=== PATIENT | male | born 1965 | race Caucasian/White ===

== ENCOUNTER 2018-02-24 16:50 | Emergency (ER) | payer SELFPAY ==
[~2018-02-24] VITALS: Ht 188 cm; Wt 100.0 kg
[2018-02-24 19:22] LABS: BASOPHILS % (AUTO) 0.8 % (0.0-2.0); EOSINOPHILS % (AUTO) 0.8 % (1.0-6.0); HEMATOCRIT 42.1 % (41-53); HEMOGLOBIN 14.8 g/dL (13.5-17.5); LYMPHOCYTES # (AUTO) 1.7 K/uL (1.0-4.8); LYMPHOCYTES % (AUTO) 22.9 % (22.0-44.0); MEAN CORPUSCULAR HEMOGLOBIN 33.4 pg (26.0-34.0); MEAN CORPUSCULAR HGB CONC 35.2 G/dL (31.0-37.0); MEAN CORPUSCULAR VOLUME 95 fL (80-100); MONOCYTES # (AUTO) 0.7 K/uL (0.1-1.0); MONOCYTES % (AUTO) 9.9 % (2.0-9.0); NEUTROPHILS # (AUTO) 4.8 K/uL (1.8-7.7); NEUTROPHILS % (AUTO) 65.6 % (40.0-70.0); PLATELET COUNT (AUTO) 172 K/uL (150-450); RED BLOOD CELL COUNT(AUTO) 4.44 MIL/uL (4.50-5.90)
[2018-02-24 19:25] VITALS: BP 103/71
[2018-02-24 19:33] LABS: ANION GAP 16 mmol/L (8-16); CALCIUM, TOTAL 8.4 mg/dL (8.8-10.5); CARBON DIOXIDE 23 mmol/L (22-29); CHLORIDE 103 mmol/L (98-107); CREATININE 0.82 mg/dL (0.60-1.30); GLOMERULAR FILTR. RATE CALC > 60 mL/min (>60); GLUCOSE,RANDOM 143 mg/dL (70-110); POTASSIUM 3.7 mmol/L (3.5-5.1); SODIUM SERUM 142 mmol/L (136-145); UREA NITROGEN, BLOOD 12 mg/dL (7-18)
[2018-02-24 19:58] LABS: ALANINE AMINOTRANSFERASE 68 U/L (12-78); ALBUMIN 4.1 g/dL (3.4-5.0); ALKALINE PHOSPHATASE 74 U/L (46-116); ASPARTATE AMINOTRANSFERASE 97 U/L (15-37); BILIRUBIN,TOTAL 1.2 mg/dL (0.1-1.0); CREATINE KINASE, TOTAL 214 U/L (39-308); TOTAL PROTEIN, SERUM 7.5 g/dL (6.4-8.2)
[2018-02-24 19:59] LABS: B-TYPE NATRIURETIC PEPTIDE 9 pg/mL (0-100)
[2018-02-24] MEDS ORDERED: LORazepam 2 MG TABLET PO ONE (20:00)
== END 2018-02-24 20:30 | disposition left against medical advice (07) ==
LOC: EMS 16:50
DX: S20.219A Contusion of unspecified front wall of thorax, initial encounter (principal); F41.9 Anxiety disorder, unspecified; F17.210 Nicotine dependence, cigarettes, uncomplicated; X58.XXXA Exposure to other specified factors, initial encounter; Y93.89 Activity, other specified; Y92.89 Other specified places as the place of occurrence of the external cause; Y99.8 Other external cause status
CPT/HCPCS: 71045; 80053; 82550; 82553; 83880; 84484; 85025; 85610; 85730; 93005; 99285; G0480

== ENCOUNTER 2018-07-31 12:08 | Inpatient (IN) | payer MEDICAID ==
[~2018-07-31] VITALS: Ht 188 cm; Wt 106.4 kg
[2018-07-31] MEDS ORDERED: THIA100T67 PO (12:20)
[2018-07-31] MEDS ORDERED: TRAZ-220 PO (12:20)
[2018-07-31] MEDS ORDERED: FOLI1 PO (12:20)
[2018-07-31] MEDS ORDERED: MECL-111 PO (12:20)
[2018-07-31] MEDS ORDERED: GABA-531 PO ×2 (12:20)
[2018-07-31] MEDS ORDERED: THIA1002I IM (12:20)
[2018-07-31] MEDS ORDERED: SERT50TA12 PO (12:20)
[2018-07-31] MEDS ORDERED: SODIUM CHLORIDE 0.9% 1,000 ML IV ONE (12:45)
[2018-07-31 13:02] LABS: BASOPHILS % (AUTO) 0.8 % (0.0-2.0); EOSINOPHILS % (AUTO) 0.8 % (1.0-6.0); HEMATOCRIT 44.2 % (41-53); HEMOGLOBIN 15.7 g/dL (13.5-17.5); LYMPHOCYTES % (AUTO) 22.7 % (22.0-44.0); MEAN CORPUSCULAR HEMOGLOBIN 33.1 pg (26.0-34.0); MEAN CORPUSCULAR HGB CONC 35.5 G/dL (31.0-37.0); MEAN CORPUSCULAR VOLUME 93 fL (80-100); MONOCYTES # (AUTO) 0.9 K/uL (0.1-1.0); MONOCYTES % (AUTO) 10.3 % (2.0-9.0); NEUTROPHILS # (AUTO) 5.7 K/uL (1.8-7.7); NEUTROPHILS % (AUTO) 65.4 % (40.0-70.0); PLATELET COUNT (AUTO) 196 K/uL (150-450); RED BLOOD CELL COUNT(AUTO) 4.75 MIL/uL (4.50-5.90); RED CELL DISTRIBUTION WIDTH 13.4 % (11.5-14.5)
[2018-07-31 13:22] LABS: ANION GAP 10 mmol/L (8-16); CARBON DIOXIDE 25 mmol/L (22-29); CHLORIDE 100 mmol/L (98-107); CREATININE 0.86 mg/dL (0.60-1.30); GLOMERULAR FILTR. RATE CALC > 60 mL/min (>60); GLUCOSE,RANDOM 108 mg/dL (70-110); POTASSIUM 3.6 mmol/L (3.5-5.1); SODIUM SERUM 135 mmol/L (136-145); UREA NITROGEN, BLOOD 10 mg/dL (7-18)
[2018-07-31 13:26] LABS: ALANINE AMINOTRANSFERASE 22 U/L (12-78); ALBUMIN 3.6 g/dL (3.4-5.0); ALKALINE PHOSPHATASE 64 U/L (46-116); ASPARTATE AMINOTRANSFERASE 20 U/L (15-37); BILIRUBIN,TOTAL 0.8 mg/dL (0.1-1.0); TOTAL PROTEIN, SERUM 6.9 g/dL (6.4-8.2)
[2018-07-31] MEDS ORDERED: ChlordiazePOXIDE HCL 25 MG CAPSULE PO ONE (13:45)
[2018-07-31] MEDS ORDERED: LORazepam 2 MG TABLET PO PRN (15:45)
[2018-07-31] MEDS: HALOPERIDOL 5 MG TABLET PO PRN (17:45)
[2018-07-31 18:54] VITALS: BP 145/69
[2018-07-31] MEDS ORDERED: ACETAMINOPHEN 325 MG TABLET PO PRN (19:45)
[2018-07-31] MEDS ORDERED: ONDANSETRON HCL 4 MG TABLET PO PRN (19:45)
[2018-07-31] MEDS ORDERED: DOCUSATE SODIUM 100 MG CAPSULE PO PRN (19:45)
[2018-07-31] MEDS ORDERED: LOPERAMIDE HCL 2 MG CAPSULE PO PRN (19:45)
[2018-07-31] MEDS ORDERED: IBUPROFEN 400 MG TABLET PO PRN (19:45)
[2018-07-31] MEDS ORDERED: NICOTINE 21 MG/24 HOUR PATCH TD ONE (19:45)
[2018-07-31] MEDS ORDERED: CloNIDine HCL 0.1 MG TABLET PO PRN (19:45)
[2018-07-31] MEDS ORDERED: GuaiFENesin/D-METHORPHAN [SUGAR-FREE] 200-20MG/10 ML SYRUP UDCUP PO PRN (19:45)
[2018-07-31] MEDS ORDERED: MAG HYDROX/AL HYDROX/SIMETH ES 30 ML SUSPENSION UDCUP PO PRN (19:45)
[2018-07-31] MEDS ORDERED: PETROLATUM,WHITE 71 GM JELLY TP PRN (19:45)
[2018-07-31] MEDS ORDERED: ALBUTEROL SULFATE HFA 90 MCG/PUFF 8 GM INHALER IH PRN (19:45)
[2018-07-31] MEDS ORDERED: MAGNESIUM HYDROXIDE SUSPENSION 30 ML UDCUP PO PRN (19:45)
[2018-07-31 19:54] VITALS: BP 144/68
[2018-07-31 20:35] VITALS: BP 145/69
[2018-07-31 20:54] VITALS: BP 128/62
[2018-07-31] MEDS ORDERED: GABAPENTIN 300 MG CAPSULE PO SCH (21:00)
[2018-07-31 21:54] VITALS: BP 111/55
[2018-07-31 23:10] VITALS: BP 126/74
[2018-08-01] VITALS (11 sets, daily range): BP systolic 112–150; BP diastolic 69–95
[2018-08-01 06:52] LABS: BASOPHILS % (AUTO) 0.3 % (0.0-2.0); HEMATOCRIT 41.4 % (41-53); HEMOGLOBIN 14.5 g/dL (13.5-17.5); MEAN CORPUSCULAR HEMOGLOBIN 32.3 pg (26.0-34.0); MEAN CORPUSCULAR VOLUME 92 fL (80-100); MONOCYTES # (AUTO) 0.8 K/uL (0.1-1.0); MONOCYTES % (AUTO) 11.1 % (2.0-9.0); NEUTROPHILS # (AUTO) 4.3 K/uL (1.8-7.7); NEUTROPHILS % (AUTO) 59.6 % (40.0-70.0); PLATELET COUNT (AUTO) 179 K/uL (150-450); RED BLOOD CELL COUNT(AUTO) 4.49 MIL/uL (4.50-5.90); RED CELL DISTRIBUTION WIDTH 13.4 % (11.5-14.5)
[2018-08-01] MEDS ORDERED: LORazepam 2 MG TABLET PO PRN (07:00)
[2018-08-01 07:25] LABS: HEMOGLOBIN A1C 4.8 % (4.5-6.2)
[2018-08-01 07:36] LABS: ALANINE AMINOTRANSFERASE 21 U/L (12-78); ALBUMIN 3.2 g/dL (3.4-5.0); ALKALINE PHOSPHATASE 52 U/L (46-116); ANION GAP 6 mmol/L (8-16); ASPARTATE AMINOTRANSFERASE 19 U/L (15-37); BILIRUBIN,TOTAL 1.2 mg/dL (0.1-1.0); CALCIUM, TOTAL 7.6 mg/dL (8.8-10.5); CARBON DIOXIDE 28 mmol/L (22-29); CHLORIDE 104 mmol/L (98-107); CHOL/HDL RATIO 1.9 (4.2-7.3); CHOLESTEROL 136 mg/dL (131-200); CREATININE 0.68 mg/dL (0.60-1.30); GLOMERULAR FILTR. RATE CALC > 60 mL/min (>60); GLUCOSE,RANDOM 93 mg/dL (70-110); HDL CHOLESTEROL 70 mg/dL (40-60); LDL CHOL (CALC.) 48 mg/dL (0-130); POTASSIUM 3.6 mmol/L (3.5-5.1); SODIUM SERUM 138 mmol/L (136-145); THYROID STIMULATING HORMONE 1.07 uIU/mL (0.36-3.74); TOTAL PROTEIN, SERUM 6.1 g/dL (6.4-8.2); TRIGLYCERIDES 91 mg/dL (15-150); UREA NITROGEN, BLOOD 11 mg/dL (7-18)
[2018-08-01] MEDS ORDERED: GABAPENTIN 300 MG CAPSULE PO SCH (09:00)
[2018-08-01] MEDS: LORazepam 2 MG TABLET PO SCH ×4 (10:40→21:38)
[2018-08-01] MEDS: FOLIC ACID 1 MG TABLET PO SCH (10:41)
[2018-08-01] MEDS: NICOTINE 14 MG/24 HOUR PATCH TD PRN (10:41)
[2018-08-01] MEDS: MECLIZINE HCL 25 MG TABLET PO SCH ×2 (10:42→17:43)
[2018-08-01] MEDS: THIAMINE HCL 100 MG TABLET PO SCH (10:42)
[2018-08-01] MEDS: SERTRALINE HCL 50 MG TABLET PO SCH (14:15)
[2018-08-01] MEDS: GABAPENTIN 300 MG CAPSULE PO SCH (17:43)
[2018-08-01] MEDS: TraZODone HCL 100 MG TABLET PO SCH (21:37)
[2018-08-02 06:30] VITALS: BP 134/79
[2018-08-02 08:02] VITALS: BP 140/92
[2018-08-02 08:03] VITALS: BP 140/92
[2018-08-02] MEDS: LORazepam 2 MG TABLET PO SCH ×4 (10:17→21:05)
[2018-08-02] MEDS: MECLIZINE HCL 25 MG TABLET PO SCH ×2 (10:17→17:21)
[2018-08-02] MEDS: SERTRALINE HCL 50 MG TABLET PO SCH (10:17)
[2018-08-02] MEDS: HALOPERIDOL 5 MG TABLET PO PRN (10:17)
[2018-08-02] MEDS: FOLIC ACID 1 MG TABLET PO SCH (10:17)
[2018-08-02] MEDS: THIAMINE HCL 100 MG TABLET PO SCH (10:18)
[2018-08-02] MEDS: GABAPENTIN 300 MG CAPSULE PO SCH ×3 (10:18→17:20)
[2018-08-02] MEDS: TraZODone HCL 100 MG TABLET PO SCH (21:05)
[2018-08-02 21:36] VITALS: BP 119/75
[2018-08-02 21:37] VITALS: BP 119/75
[2018-08-03 06:16] VITALS: BP 128/77
[2018-08-03] MEDS ORDERED: LORazepam 1 MG TABLET PO PRN (07:00)
[2018-08-03 08:03] VITALS: BP 123/74
[2018-08-03 08:05] VITALS: BP 123/74
[2018-08-03] MEDS: GABAPENTIN 300 MG CAPSULE PO SCH ×3 (08:36→16:45)
[2018-08-03] MEDS: THIAMINE HCL 100 MG TABLET PO SCH (08:36)
[2018-08-03] MEDS: MECLIZINE HCL 25 MG TABLET PO SCH ×2 (08:36→16:44)
[2018-08-03] MEDS: SERTRALINE HCL 50 MG TABLET PO SCH (08:36)
[2018-08-03] MEDS: FOLIC ACID 1 MG TABLET PO SCH (08:36)
[2018-08-03] MEDS: LORazepam 1 MG TABLET PO SCH ×4 (08:37→21:05)
[2018-08-03 16:53] VITALS: BP 106/58
[2018-08-03] MEDS: TraZODone HCL 100 MG TABLET PO SCH (21:05)
[2018-08-04 06:50] VITALS: BP 126/85
[2018-08-04 06:54] VITALS: BP 126/85
[2018-08-04 08:50] VITALS: BP 110/69
[2018-08-04] MEDS: LORazepam 1 MG TABLET PO PRN ×2 (08:54→13:31)
[2018-08-04] MEDS: FOLIC ACID 1 MG TABLET PO SCH (08:54)
[2018-08-04] MEDS: MECLIZINE HCL 25 MG TABLET PO SCH ×2 (08:54→16:40)
[2018-08-04] MEDS: GABAPENTIN 300 MG CAPSULE PO SCH ×3 (08:55→16:40)
[2018-08-04] MEDS: THIAMINE HCL 100 MG TABLET PO SCH (08:55)
[2018-08-04] MEDS: SERTRALINE HCL 50 MG TABLET PO SCH (08:55)
[2018-08-04] MEDS: NICOTINE 14 MG/24 HOUR PATCH TD PRN (09:22)
[2018-08-04 18:07] VITALS: BP 127/71
[2018-08-04 18:09] VITALS: BP 127/71
[2018-08-04] MEDS: TraZODone HCL 100 MG TABLET PO SCH (20:26)
[2018-08-05 03:05] VITALS: BP 131/78
[2018-08-05] MEDS: LORazepam 1 MG TABLET PO PRN (03:07)
[2018-08-05 08:30] VITALS: BP 112/76
[2018-08-05] MEDS: SERTRALINE HCL 50 MG TABLET PO SCH (08:35)
[2018-08-05] MEDS: THIAMINE HCL 100 MG TABLET PO SCH (08:35)
[2018-08-05] MEDS: MECLIZINE HCL 25 MG TABLET PO SCH ×2 (08:35→16:14)
[2018-08-05] MEDS: FOLIC ACID 1 MG TABLET PO SCH (08:35)
[2018-08-05] MEDS: GABAPENTIN 300 MG CAPSULE PO SCH ×3 (08:35→16:14)
[2018-08-05] MEDS: HALOPERIDOL 5 MG TABLET PO PRN ×2 (08:36→20:20)
[2018-08-05] MEDS: NICOTINE 14 MG/24 HOUR PATCH TD PRN (08:39)
[2018-08-05 17:06] VITALS: BP 104/61
[2018-08-05] MEDS: TraZODone HCL 100 MG TABLET PO SCH (20:19)
[2018-08-05] MEDS: ZOLPIDEM TARTRATE 10 MG TABLET PO PRN (20:20)
[2018-08-06 08:30] VITALS: BP 120/76
[2018-08-06] MEDS: FOLIC ACID 1 MG TABLET PO SCH (09:37)
[2018-08-06] MEDS: SERTRALINE HCL 50 MG TABLET PO SCH (09:37)
[2018-08-06] MEDS: THIAMINE HCL 100 MG TABLET PO SCH (09:38)
[2018-08-06] MEDS: MECLIZINE HCL 25 MG TABLET PO SCH ×2 (09:38→16:27)
[2018-08-06] MEDS: GABAPENTIN 300 MG CAPSULE PO SCH ×3 (09:38→16:27)
[2018-08-06] MEDS: NICOTINE 14 MG/24 HOUR PATCH TD PRN (09:41)
[2018-08-06 20:00] VITALS: BP 122/74
[2018-08-06] MEDS: TraZODone HCL 100 MG TABLET PO SCH (20:08)
[2018-08-06] MEDS: ZOLPIDEM TARTRATE 10 MG TABLET PO PRN (20:09)
[2018-08-07 05:26] VITALS: BP 133/74
[2018-08-07] MEDS: FOLIC ACID 1 MG TABLET PO SCH (08:06)
[2018-08-07] MEDS: THIAMINE HCL 100 MG TABLET PO SCH (08:06)
[2018-08-07] MEDS: GABAPENTIN 300 MG CAPSULE PO SCH ×3 (08:06→16:15)
[2018-08-07] MEDS: MECLIZINE HCL 25 MG TABLET PO SCH ×2 (08:06→16:15)
[2018-08-07] MEDS: SERTRALINE HCL 50 MG TABLET PO SCH (08:06)
[2018-08-07] MEDS: NICOTINE 14 MG/24 HOUR PATCH TD PRN (08:08)
[2018-08-07 09:50] VITALS: BP 113/66
[2018-08-07 17:26] VITALS: BP 129/77
[2018-08-07] MEDS: ZOLPIDEM TARTRATE 10 MG TABLET PO PRN (20:05)
[2018-08-07] MEDS: TraZODone HCL 100 MG TABLET PO SCH (20:05)
[2018-08-08] MEDS: THIAMINE HCL 100 MG TABLET PO SCH (09:02)
[2018-08-08] MEDS: FOLIC ACID 1 MG TABLET PO SCH (09:02)
[2018-08-08] MEDS: MECLIZINE HCL 25 MG TABLET PO SCH ×2 (09:02→16:30)
[2018-08-08] MEDS: SERTRALINE HCL 50 MG TABLET PO SCH (09:02)
[2018-08-08] MEDS: GABAPENTIN 300 MG CAPSULE PO SCH ×3 (09:02→16:30)
[2018-08-08] MEDS: NICOTINE 14 MG/24 HOUR PATCH TD PRN (09:05)
[2018-08-08 09:45] VITALS: BP 105/60
[2018-08-08] MEDS: NICOTINE 21 MG/24 HOUR PATCH TD SCH (14:35)
[2018-08-08] MEDS: TraZODone HCL 100 MG TABLET PO SCH (20:26)
[2018-08-09 05:38] VITALS: BP 126/75
[2018-08-09] MEDS: GABAPENTIN 300 MG CAPSULE PO SCH ×3 (08:03→17:38)
[2018-08-09] MEDS: THIAMINE HCL 100 MG TABLET PO SCH (08:03)
[2018-08-09] MEDS: FOLIC ACID 1 MG TABLET PO SCH (08:03)
[2018-08-09] MEDS: SERTRALINE HCL 50 MG TABLET PO SCH (08:03)
[2018-08-09] MEDS: MECLIZINE HCL 25 MG TABLET PO SCH ×2 (08:03→17:38)
[2018-08-09] MEDS: NICOTINE 21 MG/24 HOUR PATCH TD SCH (08:05)
[2018-08-09 08:58] VITALS: BP 135/79
[2018-08-09 16:27] VITALS: BP 117/64
[2018-08-09] MEDS: TraZODone HCL 100 MG TABLET PO SCH (20:12)
[2018-08-10 02:16] VITALS: BP 121/75
[2018-08-10 09:02] VITALS: BP 120/70
[2018-08-10] MEDS: THIAMINE HCL 100 MG TABLET PO SCH (09:25)
[2018-08-10] MEDS: SERTRALINE HCL 50 MG TABLET PO SCH (09:25)
[2018-08-10] MEDS: FOLIC ACID 1 MG TABLET PO SCH (09:25)
[2018-08-10] MEDS: MECLIZINE HCL 25 MG TABLET PO SCH ×2 (09:25→16:44)
[2018-08-10] MEDS: GABAPENTIN 300 MG CAPSULE PO SCH ×3 (09:25→16:44)
[2018-08-10] MEDS: NICOTINE 21 MG/24 HOUR PATCH TD SCH (09:27)
[2018-08-10] MEDS: TraZODone HCL 100 MG TABLET PO SCH (20:29)
[2018-08-10 20:36] VITALS: BP 124/74
[2018-08-11 05:08] VITALS: BP 127/86
[2018-08-11] MEDS: SERTRALINE HCL 50 MG TABLET PO SCH (09:47)
[2018-08-11] MEDS: GABAPENTIN 300 MG CAPSULE PO SCH ×3 (09:47→16:46)
[2018-08-11] MEDS: THIAMINE HCL 100 MG TABLET PO SCH (09:47)
[2018-08-11] MEDS: MECLIZINE HCL 25 MG TABLET PO SCH ×2 (09:47→16:45)
[2018-08-11] MEDS: FOLIC ACID 1 MG TABLET PO SCH (09:47)
[2018-08-11] MEDS: NICOTINE 21 MG/24 HOUR PATCH TD SCH (09:48)
[2018-08-11 09:58] VITALS: BP 122/74
[2018-08-11 17:39] VITALS: BP 142/79
[2018-08-11] MEDS: TraZODone HCL 100 MG TABLET PO SCH (20:20)
[2018-08-12] MEDS: FOLIC ACID 1 MG TABLET PO SCH (09:13)
[2018-08-12] MEDS: GABAPENTIN 300 MG CAPSULE PO SCH ×3 (09:13→17:14)
[2018-08-12] MEDS: SERTRALINE HCL 50 MG TABLET PO SCH (09:13)
[2018-08-12] MEDS: MECLIZINE HCL 25 MG TABLET PO SCH ×2 (09:13→17:14)
[2018-08-12] MEDS: THIAMINE HCL 100 MG TABLET PO SCH (09:14)
[2018-08-12] MEDS: NICOTINE 21 MG/24 HOUR PATCH TD SCH (09:20)
[2018-08-12 10:13] VITALS: BP 119/71
[2018-08-12 18:40] VITALS: BP 116/70
[2018-08-12] MEDS: TraZODone HCL 100 MG TABLET PO SCH (20:15)
[2018-08-13] MEDS: MECLIZINE HCL 25 MG TABLET PO SCH ×2 (08:55→16:48)
[2018-08-13] MEDS: SERTRALINE HCL 50 MG TABLET PO SCH (08:55)
[2018-08-13] MEDS: FOLIC ACID 1 MG TABLET PO SCH (08:55)
[2018-08-13] MEDS: GABAPENTIN 300 MG CAPSULE PO SCH ×3 (08:55→16:48)
[2018-08-13] MEDS: THIAMINE HCL 100 MG TABLET PO SCH (08:55)
[2018-08-13] MEDS: NICOTINE 21 MG/24 HOUR PATCH TD SCH (08:56)
[2018-08-13 10:00] VITALS: BP 105/63
[2018-08-13] MEDS: TraZODone HCL 100 MG TABLET PO SCH (20:18)
[2018-08-13 20:36] VITALS: BP 123/66
[2018-08-13] MEDS ORDERED: TRAZ-220 PO (22:03)
[2018-08-14 07:04] VITALS: BP 119/67
[2018-08-14] MEDS: MECLIZINE HCL 25 MG TABLET PO SCH (08:52)
[2018-08-14] MEDS: THIAMINE HCL 100 MG TABLET PO SCH (08:52)
[2018-08-14] MEDS: GABAPENTIN 300 MG CAPSULE PO SCH ×2 (08:52→12:41)
[2018-08-14] MEDS: FOLIC ACID 1 MG TABLET PO SCH (08:52)
[2018-08-14] MEDS: SERTRALINE HCL 50 MG TABLET PO SCH (08:53)
[2018-08-14] MEDS: NICOTINE 21 MG/24 HOUR PATCH TD SCH (08:53)
[2018-08-14 10:16] VITALS: BP 133/60
== END 2018-08-14 15:23 | disposition home or self-care (01) | DRG 751 ==
LOC: EMS 12:10 → 3EI 18:04
PROVIDERS: ADMIT Psychiatry & Neurology Psychiatry; ATTEND Psychiatry & Neurology Psychiatry
DX: F33.2 Major depressive disorder, recurrent severe without psychotic features (principal); R45.851 Suicidal ideations; Z91.19 Patient's noncompliance with other medical treatment and regimen; F10.10 Alcohol abuse, uncomplicated; Y90.6 Blood alcohol level of 120-199 mg/100 ml; F12.90 Cannabis use, unspecified, uncomplicated; F17.200 Nicotine dependence, unspecified, uncomplicated; F41.9 Anxiety disorder, unspecified; Z59.0 Homelessness; Z71.41 Alcohol abuse counseling and surveillance of alcoholic; Z71.6 Tobacco abuse counseling
CPT/HCPCS: 83036; 84443; 93005; G0480; J7030

== ENCOUNTER 2019-02-02 13:45 | Emergency (ER) | payer MEDICAID, OTHER ==
[~2019-02-02] VITALS: Ht 188 cm; Wt 13.2 kg
[~2019-02-02 13:45] MED LIST: FOLI1 PO; GABA-531 PO; MECL-111 PO; SERT50TA12 PO; THIA100T67 PO; TRAZ-220 PO
[2019-02-02 15:39] LABS: BASOPHILS % (AUTO) 0.4 % (0.0-2.0); EOSINOPHILS % (AUTO) 0.8 % (1.0-6.0); HEMATOCRIT 42.4 % (41-53); HEMOGLOBIN 14.6 g/dL (13.5-17.5); LYMPHOCYTES % (AUTO) 28.5 % (22.0-44.0); MEAN CORPUSCULAR HEMOGLOBIN 31.6 pg (26.0-34.0); MEAN CORPUSCULAR HGB CONC 34.5 G/dL (31.0-37.0); MEAN CORPUSCULAR VOLUME 92 fL (80-100); MONOCYTES # (AUTO) 0.8 K/uL (0.1-1.0); MONOCYTES % (AUTO) 12.1 % (2.0-9.0); NEUTROPHILS # (AUTO) 4.1 K/uL (1.8-7.7); NEUTROPHILS % (AUTO) 58.2 % (40.0-70.0); PLATELET COUNT (AUTO) 124 K/uL (150-450); RED BLOOD CELL COUNT(AUTO) 4.64 MIL/uL (4.50-5.90)
[2019-02-02 15:50] LABS: ANION GAP 12 mmol/L (8-16); CALCIUM, TOTAL 8.6 mg/dL (8.8-10.5); CARBON DIOXIDE 27 mmol/L (22-29); CHLORIDE 103 mmol/L (98-107); CREATININE 0.72 mg/dL (0.60-1.30); GLOMERULAR FILTR. RATE CALC > 60 mL/min (>60); GLUCOSE,RANDOM 118 mg/dL (70-110); POTASSIUM 3.5 mmol/L (3.5-5.1); SODIUM SERUM 142 mmol/L (136-145); UREA NITROGEN, BLOOD 10 mg/dL (7-18)
[2019-02-02 15:57] LABS: ALANINE AMINOTRANSFERASE 108 U/L (12-78); ALBUMIN 3.5 g/dL (3.4-5.0); ALKALINE PHOSPHATASE 63 U/L (46-116); ASPARTATE AMINOTRANSFERASE 162 U/L (15-37); BILIRUBIN,TOTAL 1.4 mg/dL (0.1-1.0); TOTAL PROTEIN, SERUM 6.8 g/dL (6.4-8.2)
[2019-02-02 16:20] LABS: AMPHET/METH SCREEN,URINE NEGATIVE (NEGATIVE); BARBITURATE SCREEN, URINE POSITIVE (NEGATIVE); BENZODIAZEPINES SCREEN,URINE POSITIVE (NEGATIVE); CANNABINOID SCREEN,URINE POSITIVE (NEGATIVE); COCAINE SCREEN,URINE NEGATIVE (NEGATIVE); METHADONE SCREEN, URINE NEGATIVE (NEGATIVE); OPIATE SCREEN,URINE NEGATIVE (NEGATIVE)
[2019-02-02 16:21] LABS: PHENCYCLIDINE SCREEN,URINE NEGATIVE (NEGATIVE)
[2019-02-02 18:27] VITALS: BP 127/81
== END 2019-02-02 19:54 | disposition home or self-care (01) ==
LOC: EMS 13:50
DX: F10.229 Alcohol dependence with intoxication, unspecified (principal); F32.9 Major depressive disorder, single episode, unspecified; F41.9 Anxiety disorder, unspecified; F12.90 Cannabis use, unspecified, uncomplicated; F17.210 Nicotine dependence, cigarettes, uncomplicated; Z88.5 Allergy status to narcotic agent; Z79.899 Other long term (current) drug therapy; Y90.8 Blood alcohol level of 240 mg/100 ml or more
CPT/HCPCS: 36415; 80053; 80307; 85025; 99284; 99406; G0480

== ENCOUNTER 2019-03-13 14:21 | Emergency (ER) | payer OTHER ==
[~2019-03-13] VITALS: Ht 188 cm; Wt 111.4 kg
[2019-03-13] MEDS ORDERED: GABA-531 PO (14:39)
[2019-03-13] MEDS: ChlordiazePOXIDE HCL 25 MG CAPSULE PO ONE (16:22)
[2019-03-13 16:23] LABS: HEMATOCRIT 41.8 % (41-53); HEMOGLOBIN 14.1 g/dL (13.5-17.5); MEAN CORPUSCULAR HGB CONC 33.7 G/dL (31.0-37.0); MEAN CORPUSCULAR VOLUME 95 fL (80-100); NEUTROPHILS % (AUTO) 58.6 % (40.0-70.0); PLATELET COUNT (AUTO) 258 K/uL (150-450); RED CELL DISTRIBUTION WIDTH 14.6 % (11.5-14.5)
[2019-03-13 16:24] LABS: BASOPHILS % (AUTO) 1.6 % (0.0-2.0); LYMPHOCYTES # (AUTO) 1.7 K/uL (1.0-4.8); MONOCYTES # (AUTO) 0.8 K/uL (0.1-1.0); MONOCYTES % (AUTO) 11.8 % (2.0-9.0); NEUTROPHILS # (AUTO) 3.8 K/uL (1.8-7.7)
[2019-03-13 16:32] LABS: ANION GAP 11 mmol/L (8-16); CARBON DIOXIDE 25 mmol/L (22-29); CHLORIDE 105 mmol/L (98-107); CREATININE 0.81 mg/dL (0.60-1.30); GLOMERULAR FILTR. RATE CALC > 60 mL/min (>60); GLUCOSE,RANDOM 115 mg/dL (70-110); POTASSIUM 3.7 mmol/L (3.5-5.1); SODIUM SERUM 141 mmol/L (136-145); UREA NITROGEN, BLOOD 9 mg/dL (7-18)
[2019-03-13 16:38] LABS: ALANINE AMINOTRANSFERASE 22 U/L (12-78); ALBUMIN 3.4 g/dL (3.4-5.0); ALKALINE PHOSPHATASE 77 U/L (46-116); ASPARTATE AMINOTRANSFERASE 19 U/L (15-37); BILIRUBIN,TOTAL 0.5 mg/dL (0.1-1.0); TOTAL PROTEIN, SERUM 6.7 g/dL (6.4-8.2)
[2019-03-13 16:40] VITALS: BP 144/81
[2019-03-13 17:07] LABS: AMPHET/METH SCREEN,URINE NEGATIVE (NEGATIVE); BARBITURATE SCREEN, URINE NEGATIVE (NEGATIVE); BENZODIAZEPINES SCREEN,URINE NEGATIVE (NEGATIVE); CANNABINOID SCREEN,URINE POSITIVE (NEGATIVE); COCAINE SCREEN,URINE NEGATIVE (NEGATIVE); METHADONE SCREEN, URINE NEGATIVE (NEGATIVE); OPIATE SCREEN,URINE NEGATIVE (NEGATIVE)
[2019-03-13 17:10] LABS: PHENCYCLIDINE SCREEN,URINE NEGATIVE (NEGATIVE)
[2019-03-13] MEDS ORDERED: NICOTINE 21 MG/24 HOUR PATCH TD ONE (17:15)
== END 2019-03-13 17:25 | disposition home or self-care (01) ==
LOC: EMS 14:22
DX: F10.10 Alcohol abuse, uncomplicated (principal); R03.0 Elevated blood-pressure reading, without diagnosis of hypertension; F17.210 Nicotine dependence, cigarettes, uncomplicated; R51 Headache; F41.9 Anxiety disorder, unspecified; F12.90 Cannabis use, unspecified, uncomplicated; Z88.5 Allergy status to narcotic agent; Z79.899 Other long term (current) drug therapy; Y90.0 Blood alcohol level of less than 20 mg/100 ml
CPT/HCPCS: 36415; 80053; 80307; 85025; 99283; 99406; G0480